=== PATIENT | male | born 1965 | race Caucasian/White ===

== ENCOUNTER 2018-06-30 16:08 | Outpatient (CLI) | payer MEDICAID | END 2018-06-30 16:09 | disposition critical access hospital (66) | LOC: EMS 16:08 | PROVIDERS: ATTEND Surgery | DX: R45.851 Suicidal ideations (principal) | CPT/HCPCS: A0425; A0429; A0999 ==

== ENCOUNTER 2018-06-30 16:33 | Emergency (ER) | payer MEDICAID ==
[2018-06-30 16:39] VITALS: BP 141/99
--- NOTE | 2018-06-30 16:54 | ED Physician Documentation ---
PD HPI MHE - Stated complaint Stated Complaint: SI - Chief complaint Chief Complaint: MHE - Additional information Additional information: 53-year-old male was brought in by EMS on a involuntary hold which is placed by [place] police. [place] police did not accompany EMS. Upon arrival I entered the room to discuss things with the patient. The patient was very aggressive and appeared intoxicated. The patient had a very threatening demeanor and stated that he was not going to stay in the emergency department. The patient walked out of the emergency department. Since, there was no appropriate police presents we were unable to stop the patient secondary to the fact that the patient appeared violent and it was not safe for staff to intervene. The police were immediately called and we asked for them to apprehend the patient and bring him back to the emergency department so we could further evaluate the patient and get him the appropriate medical and mental health care that he is in need of. Review of Systems Unable to obtain: Uncooperative PD PAST MEDICAL HISTORY - Past Medical History Cardiovascular: None, High cholesterol Respiratory: None Endocrine/Autoimmune: None GI: None : None HEENT: None Psych: None Musculoskeletal: None Derm: None - Past Surgical History Ortho: Other - Present Medications Home Medications: Ambulatory Orders Medication Instructions Recorded Confirmed No Known Home Medications 01/23/14 01/23/14 - Allergies Allergies/Adverse Reactions: Allergies Allergy/AdvReac Type Severity Reaction Status Date / Time No Known Drug Allergies Allergy Verified 01/22/14 14:18 PD ED PE NORMAL - General General: Other (The patient was alert, ambulatory the patient appeared intoxicated and was highly aggressive and agitated. A comprehensive exam was not able to be performed secondary to the patient's agitation and him absconding from the emergency department.) Results - Vitals Vitals: Vital Signs - 24 hr 06/30/18 16:34 Temperature 36.5 C Heart Rate 87 Respiratory 14 Rate Blood Pressure 141/99 H O2 Saturation 99 Oxygen O2 Source Room air PD MEDICAL DECISION MAKING - ED course ED course: The patient absconded from the emergency department, it was unsafe for staff to intervene secondary to his intoxication and agitation and the fact that he appeared to be violent. The police were called and they will attempt to bring the patient back to the emergency department - Sepsis Event Vital Signs: Vital Signs - 24 hr 06/30/18 16:34 Temperature 36.5 C Heart Rate 87 Respiratory 14 Rate Blood Pressure 141/99 H O2 Saturation 99 Oxygen O2 Source Room air Departure - Departure Disposition: ED [place] Clinical Impression: Psychiatric symptoms Discharge Date/Time: 06/30/18 16:53
== END 2018-06-30 16:53 | disposition left against medical advice (07) ==
LOC: EDBD → EDUNIT# → ED 16:33
DX: Z04.6 Encounter for general psychiatric examination, requested by authority (principal); R46.89 Other symptoms and signs involving appearance and behavior; Z53.20 Procedure and treatment not carried out because of patient's decision for unspecified reasons
CPT/HCPCS: 80053; 80307; 80320; 80329; 83690; 85025; 99281; 99283

== ENCOUNTER 2021-01-31 17:44 | Emergency (ER) | payer MEDICAID ==
--- OUTSIDE RECORDS SUMMARY | 2021-01-31 17:48 | EXTERNAL MEDICAL SUMMARY RPT | Continuity of Care Document ---
:1965 Demographics Phone Unavailable Preferred Language Egyptian Marital Status Unknown [employer]ar[employer] Affiliation Unknown Race Unknown Ethnic Group Unknown Author Organization [place] Address [address] [place] [address] Phone Care Team Providers Name Role Phone Brown Unavailable Unavailable Problems date description facility 20201217 Dorsalgia, unspecified [facility] [id number] Incontinence without sensory awareness [facility] [id number] Other chronic pain [facility] [id number] Pain in right hip [facility] [id number] Unspecified thoracic, thoracolumbar and lumbosacral [facility] interver Medications date description facility [id number] gabapentin 100 MG Oral Capsule [facility] 24186611 [facility] 10 [facility] 9[facility] Hydrochlorothiazide 25 MG Oral Tablet [facility] 20210109 gabapentin 100 MG Oral Capsule [facility] 76193016 gabapentin 600 MG Oral Tablet [facility] 16348400 meloxicam 7.5 MG Oral Tablet [facility] 40229795 Naltrexone 112 MG/ML Injectable Suspens [facility] Procedures date description facility [id number] [facility] date description facility [id number] Diagnosis [facility] date description facility [id number] Finding [facility] date description facility [id number] [facility] Social History date description facility [phone]
--- NOTE | 2021-01-31 17:50 | ED Physician Documentation ---
History of Present Illness - Stated complaint Stated Complaint: FIT FOR CONFINEMENT - History obtained from History obtained from: Patient - Additonal information Additional information: He was at [facility] and had a blood alcohol of 0.40. Arrested without drinking any more alcohol. He was brought here for fit for confinement before being jailed. He has no specific complaints except for chronic pain. Review of Systems Constitutional: denies: Fever, Chills Throat: denies: Dental pain / toothache, Sore throat Cardiac: denies: Chest pain / pressure, Palpitations Respiratory: denies: Dyspnea, Cough PD PAST MEDICAL HISTORY - Past Medical History Cardiovascular: None, High cholesterol Respiratory: None Endocrine/Autoimmune: None GI: None : None HEENT: None Psych: None Musculoskeletal: None Derm: None - Past Surgical History Ortho: Other - Present Medications Home Medications: Ambulatory Orders Medication Instructions Recorded Confirmed No Known Home Medications 01/23/14 01/23/14 - Allergies Allergies/Adverse Reactions: Allergies Allergy/AdvReac Type Severity Reaction Status Date / Time No Known Drug Allergies Allergy Verified 01/31/21 17:54 PD ED PE NORMAL - Vitals Vital signs reviewed: Yes - General General: Alert and oriented X 3, Other (Slightly slurred speech and bloodshot eyes but only minimally clinically intoxicated.) - HEENT HEENT: PERRL - Cardiac Cardiac: RRR, No murmur - Respiratory Respiratory: No respiratory distress, Clear bilaterally - Abdomen Abdomen: Normal bowel sounds, Soft, Non tender - Back Back: No CVA TTP, No spinal TTP - Derm Derm: Normal color, Warm and dry - Extremities Extremities: No edema, No calf tenderness / cord - Neuro Neuro: Alert and oriented X 3, Normal speech Results - Vitals Vitals: Vital Signs - 24 hr 01/31/21 17:45 Temperature 36.1 C L Heart Rate 91 Respiratory 16 Rate Blood Pressure 162/100 H O2 Saturation 96 Oxygen O2 Source Room air PD MEDICAL DECISION MAKING - ED course ED course: 55-year-old gentleman presents with probably significant Alcohol intoxication but seems like he tolerates it well because of tolerance. He will need alcohol withdrawal precautions in [facility] I left a voicemail with the nurse practitioner there, but from my perspective he is stable for incarceration. Departure - Departure Disposition: 01 Home, Self Care Clinical Impression: Alcohol intoxication Qualifiers: Complication of substance-induced condition: uncomplicated Qualified Code(s): F10.920 - Alcohol use, unspecified with intoxication, uncomplicated Condition: Good Record reviewed to determine appropriate education?: Yes Instructions: ED Alcohol Intoxication
--- OUTSIDE RECORDS SUMMARY | 2021-01-31 17:56 | EXTERNAL MEDICAL SUMMARY RPT | Continuity of Care Document ---
:1965 Demographics Phone Unavailable Preferred Language Nepali Marital Status Unknown Judaism Affiliation Unknown Race Unknown Ethnic Group Unknown Author Organization [place] Address [address] [place] [address] Phone Care Team Providers Name Role Phone Brown Unavailable Unavailable Problems date description facility 20201217 Dorsalgia, unspecified [facility] [id number] Incontinence without sensory awareness [facility] [id number] Other chronic pain [facility] [id number] Pain in right hip [facility] [id number] Unspecified thoracic, thoracolumbar and lumbosacral [facility] interver Medications date description facility [id number] gabapentin 100 MG Oral Capsule [facility] 29722272 Lisinopril [facility] 32653074 Hydrochlorothiazide 25 MG Oral Tablet [facility] 20210109 gabapentin 100 MG Oral Capsule [facility] 22148060 gabapentin 600 MG Oral Tablet [facility] 16567128 meloxicam 7.5 MG Oral Tablet [facility] 00188115 Naltrexone 112 MG/ML Injectable Suspens [facility] Procedures date description facility [id number] [facility] date description facility [id number] Diagnosis [facility] date description facility [id number] Finding [facility] date description facility [id number] [facility] Social History date description facility [phone]
[2021-01-31 18:16] VITALS: BP 143/56
== END 2021-01-31 18:48 | disposition home or self-care (01) ==
LOC: ED 17:44
DX: Z02.89 Encounter for other administrative examinations (principal)
CPT/HCPCS: 99281; 99282

== ENCOUNTER 2021-02-03 09:49 | Outpatient (CLI) | payer MEDICAID | END 2021-02-03 09:50 | disposition critical access hospital (66) | LOC: EMS 09:49 | DX: R46.89 Other symptoms and signs involving appearance and behavior (principal) | CPT/HCPCS: A0425; A0429; A0999 ==

== ENCOUNTER 2021-02-03 09:53 | Emergency (ER) | payer MEDICAID ==
--- NOTE | 2021-02-03 10:17 | ED Physician Documentation ---
PD HPI ALTERED MENTAL STATUS - Stated complaint Stated Complaint: ETOH WITHDRAWL - Chief complaint Chief Complaint: General - History obtained from History obtained from: Patient - History of Present Illness Timing - onset: Yesterday Timing - duration: Days (1) Timing - details: Gradual onset, Still present Quality / character: Confused, Agitated Associated symptoms: NVD (nausea without vomiting, and some loose stool.). No: Fever, Headache, Stiff neck, Dyspnea Contributing factors: Substance abuse (alcoholism and last drink was 3 days ago. Has had withdrawal in the past and says this feels like that. He is in senior care the past 3 days, with tremor, nausea, agitation onset yesterday. Given Ativan last evening and Librium this morning without improvement.) Basline status: Alert and oriented X 3, Ambulatory Similar symptoms before: Diagnosis (alcohol withdrawal. Has not had prior seizures nor hospitalizations.) Recently seen: Other (eval by senior care provider yesterday.) Review of Systems Constitutional: reports: Myalgias. denies: Fever, Chills Nose: denies: Rhinorrhea / runny nose, Congestion Throat: denies: Sore throat Cardiac: denies: Chest pain / pressure, Pedal edema Respiratory: denies: Dyspnea, Cough GI: reports: Nausea, Diarrhea. denies: Abdominal Pain, Vomiting, Constipation, Bloody / black stool : denies: Dysuria, Frequency Neurologic: reports: Generalized weakness. denies: Near syncope, Headache Psychiatric: denies: Depressed, Suicidal Endocrine: reports: Easy bruising / bleeding. denies: Weight loss Immunocompromised: denies: Immunocompromised PD PAST MEDICAL HISTORY - Past Medical History Cardiovascular: None, High cholesterol Respiratory: None Endocrine/Autoimmune: None GI: None : None HEENT: None Psych: None Musculoskeletal: None Derm: None - Past Surgical History Past Surgical History: Yes Ortho: Other - Present Medications Home Medications: Ambulatory Orders Medication Instructions Recorded Confirmed PHENobarbitaL [Phenobarbital] 30 mg PO BID 4 Days #6 tablet 02/03/21 - Allergies Allergies/Adverse Reactions: Allergies Allergy/AdvReac Type Severity Reaction Status Date / Time No Known Drug Allergies Allergy Verified 02/03/21 10:04 - Social History Does the pt smoke?: Yes Smoking Status: Current every day smoker Does the pt drink ETOH?: Yes Does the pt have substance abuse?: Yes - Immunizations Immunizations are current?: Yes - POLST Patient has POLST: No PD ED PE NORMAL - Vitals Vital signs reviewed: Yes - General General: Alert and oriented X 3, No acute distress (has tremoring and is tachycardic, but able to talk calmly and answer questions. ), Well developed/nourished - HEENT HEENT: Pharynx benign. No: Moist mucous membranes - Neck Neck: Supple, no meningeal sign, No adenopathy - Cardiac Cardiac: No: RRR (regular but tachycardic) - Respiratory Respiratory: No respiratory distress, Clear bilaterally - Abdomen Abdomen: Normal bowel sounds, Soft, Non distended, Other (mild tender epigastric without guarding nor percussion tender. ). No: No organomegaly (liver feels enlarged but not tender to palpation. ) - Derm Derm: Normal color, Warm and dry - Extremities Extremities: No edema, No calf tenderness / cord, Other (some nontender bruising noted on both shins and left forearm. ) Results - Vitals Vitals: Vital Signs - 24 hr 02/03/21 02/03/21 02/03/21 09:59 10:56 11:25 Temperature 36.5 C Heart Rate 108 H 107 H 93 Respiratory 16 21 18 Rate Blood Pressure 113/98 H 116/84 H 115/71 O2 Saturation 93 94 02/03/21 13:26 Temperature 36.5 C Heart Rate 88 Respiratory 16 Rate Blood Pressure 116/72 O2 Saturation 96 Oxygen O2 Source Room air - Labs Labs: Laboratory Tests 02/03/21 02/03/21 10:16 10:16 WBC 11.3 H RBC 3.92 L Hgb 13.8 L Hct 37.6 L MCV 95.9 H MCH 35.2 H MCHC 36.7 H RDW 11.7 L Plt Count 133 MPV 9.1 Neut # (Auto) 8.2 H Lymph # (Auto) 1.0 L [place] # (Auto) 1.9 H Eos # (Auto) 0.0 Baso # (Auto) 0.0 Absolute Nucleated RBC 0.00 Nucleated RBC % 0.0 Manual Slide Review Indicated RBC Morph Micro Appear 1+ ANISOCYTOSIS Sodium 132 L Potassium 3.1 L Chloride 93 L Carbon Dioxide 24 Anion Gap 15.0 H BUN 19 Creatinine 1.9 H Estimated GFR (MDRD) 37 L Glucose 108 H Calcium 10.0 Magnesium 1.9 Total Bilirubin 2.3 H AST 70 H ALT 53 Alkaline Phosphatase 73 Total Protein 7.8 Albumin 4.8 Globulin 3.0 Albumin/Globulin Ratio 1.6 Lipase 40 PD MEDICAL DECISION MAKING - ED course Complexity details: reviewed results, re-evaluated patient (CIWA score is down to 2 with treatment. His tremoring is improved after 260 mg phenobarbital as a common alcohol withdrawal regimen. He seems improved enough to maintain outpatient. ), considered differential (seems alcohol withdrawal.), d/w patient, d/w digital media sales consultant (No answer on Damion Baker's cell phone, so left message without any indentifiers. ) Departure - Departure Disposition: Home, Self Care Clinical Impression: Alcohol withdrawal Qualifiers: Complication of substance-induced condition: uncomplicated Qualified Code(s): F10.230 - Alcohol dependence with withdrawal, uncomplicated Condition: Stable Record reviewed to determine appropriate education?: Yes Instructions: ED Withdrawal Alcohol Follow-Up: RACHEL PENNINGTON ARNP [Primary Care Provider] - DAMION BAKER ARNP [Physician No Access] - Prescriptions: PHENobarbitaL [Phenobarbital] 30 mg PO BID 4 Days #6 tablet Comments: Provider for the senior care will prescribe you medications to help with your withdrawal over the next few days. 1 possible suggestion would be phenobarb twice daily for 2 days then once daily for 2 days with addition of other medicine such as Ativan. Alternatively Ativan and Librium could be used just by themselves. Stay well-hydrated. Ibuprofen 400 mg twice daily to help with pains in general. Discharge Date/Time: 02/03/21 13:10
[2021-02-03] MEDS ORDERED: SODIUM CHLORIDE 0.9% 1,000 ML IV STA ×2 (10:18→11:02)
[2021-02-03] MEDS ORDERED: PHENobarbital 65 MG/ML VIAL IV STA ×2 (10:18→11:04)
[2021-02-03] MEDS ORDERED: FAMOTIDINE 20 MG/2 ML VIAL IVP STA (10:18)
--- OUTSIDE RECORDS SUMMARY | 2021-02-03 10:28 | EXTERNAL MEDICAL SUMMARY RPT | Continuity of Care Document ---
:1965 Demographics Phone Unavailable Preferred Language Lithuanian Marital Status Unknown [employer] Affiliation Unknown Race Unknown Ethnic Group Unknown Author Organization [place] Address [address] [place] [address] Phone Care Team Providers Name Role Phone Chelsie Mcgarry Unavailable Unavailable Problems date description facility [id number] Dorsalgia, unspecified [facility] [id number] Incontinence without sensory awareness [facility] [id number] Other chronic pain [facility] [id number] Pain in right hip [facility] [id number] Unspecified thoracic, thoracolumbar and lumbosacral [facility] interver Medications date description facility 20201217 gabapentin [address] [facility] 97236888 Lisinopril 10 MG [facility] 56995752 Hydrochlorothiazide [address] [facility] 01921330 gabapentin [address] [facility] 68144626 gabapentin 600 MG Oral Tablet [facility] 87451203 meloxicam 7.5 MG Oral Tablet [facility] 37286913 Naltrexone 112 MG/ML Injectable Suspens ion [facility] Procedures date description facility 20201217 [facility] date description facility 20210109 Diagnosis [facility] date description facility 20210109 Finding [facility] date description facility 20210109 [facility] Social History date description facility [phone]
[2021-02-03 10:29] LABS: BASOPHILS % (AUTO) 0.4 %; HCT - HEMATOCRIT 37.6 % (42.0-52.0); HGB - HEMOGLOBIN 13.8 g/dL (14.0-18.0); LYMPHOCYTES % (AUTO) 9.2 %; MEAN CORPUSCULAR HEMOGLOBIN 35.2 pg (27.0-31.0); MEAN CORPUSCULAR HGB CONC 36.7 g/dL (32.0-36.0); MEAN CORPUSCULAR VOLUME 95.9 fL (80.0-94.0); MEAN PLATELET VOLUME 9.1 fL (7.4-11.4); MONOCYTES # (AUTO) 1.9 10^3/uL (0.0-1.0); MONOCYTES % (AUTO) 16.6 %; NEUTROPHILS # (AUTO) 8.2 10^3/uL (1.5-6.6); NEUTROPHILS % (AUTO) 73.1 %; PLT - PLATELET COUNT 133 10^3/uL (130-450); RED BLOOD COUNT 3.92 10^6/uL (4.70-6.10); RED CELL DISTRIBUTION WIDTH 11.7 % (12.0-15.0); WHITE BLOOD COUNT 11.3 x10^3/uL (4.8-10.8)
[2021-02-03 10:33] LABS: SLIDE REVIEW? Indicated
[2021-02-03 10:47] LABS: ALBUMIN 4.8 g/dL (3.2-5.5); ALBUMIN/GLOBULIN RATIO 1.6 (1.0-2.2); BILIRUBIN,TOTAL 2.3 mg/dL (0.2-1.0); CREATININE 1.9 mg/dL (0.6-1.2); MAGNESIUM 1.9 mg/dL (1.7-2.8); POTASSIUM 3.1 mmol/L (3.5-5.0); TOTAL PROTEIN 7.8 g/dL (6.7-8.2)
[2021-02-03 10:48] LABS: RBC MORPHOLOGY (MULTIPLE) 1+ ANISOCYTOSIS (NORMAL)
[2021-02-03] MEDS ORDERED: POTASSIUM CHLOR 10 MEQ/100 ML 10 MEQ/100 ML BAG IV STA (11:01)
[2021-02-03 13:27] VITALS: BP 116/72
== END 2021-02-03 13:10 | disposition home or self-care (01) ==
LOC: EDUNIT# → ED 09:53
DX: F10.230 Alcohol dependence with withdrawal, uncomplicated (principal); F17.200 Nicotine dependence, unspecified, uncomplicated
CPT/HCPCS: 36415; 80053; 83690; 83735; 85025; 96365; 96366; 96375; 96376; 99284

== ENCOUNTER 2021-02-21 13:50 | Outpatient (CLI) | payer MEDICAID | END 2021-02-21 13:51 | disposition E | LOC: EMS 13:50 | DX: S07.1XXA Crushing injury of skull, initial encounter (principal); Y93.89 Activity, other specified; Y92.148 Other place in prison as the place of occurrence of the external cause ==